=== PATIENT | female | born 1955 | race Caucasian/White ===

== ENCOUNTER 2017-08-26 17:34 | Observation (INO) | payer OTHER ==
[~2017-08-26] VITALS: Ht 175.3 cm; Wt 97.5 kg
[~2017-08-26 17:34] MED LIST: ARIC10TA PO; BUPR300T PO; BUSP10TA8 PO; CLOB-50 TOP; CYMB30CA PO; LEVA750T9 PO; NORT1CAP54 PO; PRED50 PO; PROT40TA PO; REST30CA PO; SENN-29 PO; SERO50TA PO; VITA10004 PO; VITA20002 PO; ZITH250T PO; ZOFR4TAB3 SL
[2017-08-26 17:36] VITALS: BP 170/80; PULSE 81; RESP 16; TEMP 97.5; O2SAT 100
[2017-08-26 17:55] VITALS: O2SAT 100
--- NOTE | 2017-08-26 17:55 | PD ---
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 She reports that she had a tooth extracted this afternoon. She reports that she was walking in her house at approximately 4:50 PM when she developed chest pain. She describes it as a sharp substernal pain that radiates into the arms. Pain comes and goes with no obvious aggravating or relieving factors. Denies abdominal pain, nausea or vomiting, diaphoresis, shortness of breath, cough or congestion, fevers or chills, lower extremity edema. She reports that it is unusual for her to feel pain because of her fentanyl pump. She has no other complaints at this time. 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 [facility]MERLY [facility] Past Medical History Asthma: Yes Anxiety: Yes Depression: Yes Cardiovascular Problems: No High Cholesterol: No Diabetes: No Diminished Hearing: No Hiatal Hernia: Yes Neurologic: Yes (RSD) Integumentary: Yes (LANG/LANG) Menopausal: Yes Past Surgical History Appendectomy: Yes Body Medical Devices: PAIN PUMP Neurologic Surgery: Yes (SPINAL CORD STIMULATOR) Tonsillectomy: Yes Social History Alcohol Use: No Tobacco Use: No Substance Use: No Allergies-Medications (Allergen,Severity, Reaction): Coded Allergies: methotrexate (Unverified Allergy, Severe, Nausea/Vomiting, 08/26/17) morphine (Unverified Allergy, Severe, Nausea/Vomiting, 08/26/17) sulfasalazine (Unverified Allergy, Severe, Nausea/Vomiting, 08/26/17) erythromycin base (Unverified Allergy, Unknown, 08/26/17) GI UPSET penicillin G (Unverified Allergy, Unknown, Rash, 08/26/17) codeine (Unverified Adverse Reaction, Intermediate, Nausea/Vomiting, ) Reported Meds & Prescriptions Reported Meds & Active Scripts Active Levaquin (Levofloxacin) 750 Mg Tab 1 Tab PO DAILY 7 Days Deltasone 50 Mg Tab (Prednisone) 50 Mg Tab 50 Mg PO DAILY 5 Days Zofran ODT (Ondansetron HCl) 4 Mg Tab 4 Mg SL Q6H PRN FOR NAUSEA/VOMITING Reported Pamelor 10 mg (Nortriptyline HCl) 10 Mg Cap 10 Mg PO HS Zithromax Z-Rashad (Azithromycin) 250 Mg Tab 250 Mg PO DIRECTED 500 MG (2 TABLETS) PO ON DAY 1, THEN 250 MG (1 TABLET) PO ON DAYS 2 TO 5. Vitamin B-12 Cr (Cyanocobalamin) 1 000 Tab 1,000 Mcg PO DAILY Clobetasol Propionate 0.05 % Oin 1 Applic TOP TID APPLY TO: AFFECTED AREAS Vitamin D-3 (Cholecalciferol) 2 000 Tab 4,000 Unit PO DAILY Senna 8.6 Mg Tab 8.6 Mg PO DAILY Restoril 30 mg (Temazepam) 30 Mg Cap 30 Mg PO HS Bupropion Hcl Xl (Bupropion HCl) 300 Mg Tab 300 Mg PO DAILY Buspar (Buspirone HCl) 10 Mg Tab 30 Mg PO DAILY Protonix (Pantoprazole Sodium) 40 Mg Tabdr 40 Mg PO DAILY Seroquel 50 mg (Quetiapine Fumarate) 50 Mg Tab 50 Mg PO HS Aricept (Donepezil HCl) 10 Mg Tab 10 Mg PO DAILY Cymbalta (Duloxetine HCl) 30 Mg Cap 30 Mg PO DAILY Review of Systems Except as stated in HPI: all other systems reviewed are Neg Physical Exam Narrative GENERAL: Well-developed well-nourished female no acute distress SKIN: Warm and dry. HEAD: Atraumatic. Normocephalic. EYES: Pupils equal and round. No scleral icterus. No injection or drainage. ENT: No nasal bleeding or discharge. Mucous membranes pink and moist. NECK: Trachea midline. No JVD. CARDIOVASCULAR: Regular rate and rhythm. No murmur appreciated. RESPIRATORY: No accessory muscle use. Clear to auscultation. Breath sounds equal bilaterally. GASTROINTESTINAL: Abdomen soft, non-tender, nondistended. Hepatic and splenic margins not palpable. MUSCULOSKELETAL: No obvious deformities. No clubbing. No cyanosis. No edema. NEUROLOGICAL: Awake and alert. No obvious cranial nerve deficits. Motor grossly within normal limits. Normal speech. PSYCHIATRIC: Appropriate mood and affect; insight and judgment normal. Data Data Last Documented VS Vital Signs Date Time Temp Pulse Resp B/P (MAP) Pulse Ox O2 Delivery O2 Flow Rate FiO2 08/26/17 18:55 18 08/26/17 18:53 93 165/72 (103) 96 08/26/17 18:01 Room Air 08/26/17 17:36 97.5 Orders Orders Electrocardiogram (08/26/17 17:51) Basic Metabolic Panel (Bmp) (08/26/17 17:51) Ckmb (Isoenzyme) Profile (08/26/17 17:51) Complete Blood Count With Diff (08/26/17 17:51) Magnesium (Mg) (08/26/17 17:51) Prothrombin Time / Inr (Pt) (08/26/17:51) Act Partial Throm Time (Ptt) (08/26/17 17:51) Troponin I (08/26/17 17:51) Ecg Monitoring (08/26/17:51) Bilateral Bp Monitoring (08/26/17:) Iv Access Insert/Monitor (08/26/17:51) Oximetry (08/26/17:51) Oxygen Administration (08/26/17 17:51) Aspirin Chew (Aspirin Chew) (08/26/17 18:00) Sodium Chloride 0.9% Flush (Ns Flush) (08/26/17 18:00) Nitroglycerin Sl (Nitrostat Sl) (08/26/17 18:00) Chest, Pa & Lat (08/26/17 17:51) CKMB (08/26/17 18:11) CKMB% (08/26/17 18:11) Labs Laboratory Tests Test 08/26/17 18:11 White Blood Count 7.4 TH/MM3 Red Blood Count 4.57 MIL/MM3 Hemoglobin 13.5 GM/DL Hematocrit 40.5 % Mean Corpuscular Volume 88.6 FL Mean Corpuscular Hemoglobin 29.5 PG Mean Corpuscular Hemoglobin Concent 33.3 % Red Cell Distribution Width 15.9 % Platelet Count 377 TH/MM3 Mean Platelet Volume 7.7 FL Neutrophils (%) (Auto) 54.9 % Lymphocytes (%) (Auto) 29.6 % Monocytes (%) (Auto) 10.4 % Eosinophils (%) (Auto) 4.3 % Basophils (%) (Auto) 0.8 % Neutrophils # (Auto) 4.1 TH/MM3 Lymphocytes # (Auto) 2.2 TH/MM3 Monocytes # (Auto) 0.8 TH/MM3 Eosinophils # (Auto) 0.3 TH/MM3 Basophils # (Auto) 0.1 TH/MM3 CBC Comment DIFF FINAL Differential Comment Prothrombin Time 10.3 SEC Prothromb Time International Ratio 1.0 RATIO Activated Partial Thromboplast Time 28.5 SEC Blood Urea Nitrogen 13 MG/DL Creatinine 0.82 MG/DL Random Glucose 100 MG/DL Calcium Level 9.1 MG/DL Magnesium Level 2.3 MG/DL Sodium Level 142 MEQ/L Potassium Level 4.3 MEQ/L Chloride Level 106 MEQ/L Carbon Dioxide Level 28.1 MEQ/L Anion Gap 8 MEQ/L Estimat Glomerular Filtration Rate 71 ML/MIN Total Creatine Kinase 112 U/L Creatine Kinase MB 1.1 NG/ML Troponin I LESS THAN 0.02 NG/ML MDM Medical Decision Making Medical Screen Exam Complete: Yes Emergency Medical Condition: Yes Medical Record Reviewed: Yes Differential Diagnosis Angina, acute coronary syndrome, aortic dissection, pulmonary embolism, pericarditis, myocarditis, pneumothorax Narrative Course The patient was placed on ECG monitoring pulse oximetry. A 12-lead EKG was obtained revealing sinus rhythm, lab work, chest x-ray been ordered per the patient took a baby aspirin this morning, additional 243 mg of aspirin as well as 3 sublingual nitroglycerin have been ordered. Upon reexamination patient reports that her pain resolved after nitroglycerin administration. CBC is unremarkable. BMP is unremarkable. CK and troponin are negative. Chest x-ray is normal. At this point time the plan is to admit the patient for serial cardiac enzymes and rule out purposes. She is agreeable. Diagnosis Primary Impression: Chest pain Admitting Information Admitting Physician Requests: Nico Madsen August 26, 2017 17:55
[2017-08-26] MEDS ORDERED: SODIUM CHLORIDE 0.9% FLUSH 10 ML FLUSH IVF PRN (18:00)
[2017-08-26] MEDS ORDERED: ASPIRIN 81 MG CHEW TAB PO ONE (18:00)
[2017-08-26 18:01] VITALS: BP_SYST 166; BP_SYST 181; BP_DIAS 79; BP_DIAS 83
[2017-08-26] MEDS: NITROGLYCERIN 0.4 MG SL 25 TABS/BTL SL SCH ×3 (18:12→18:50)
--- NOTE | 2017-08-26 18:47 | RADRPT ---
EXAM DATE/TIME: 08/26/2017 18:17 [place] COMPARISON: CHEST SINGLE AP, April 06, 2015, 15:57. INDICATIONS : Chest pain MEDICAL HISTORY : Hypertension. SURGICAL HISTORY : None. ENCOUNTER: Initial ACUITY: 1 day PAIN SCORE: 2/10 LOCATION: chest FINDINGS: Lungs are focally clear. No effusion present. Cardiac contour is satisfactory. Spinal stimulator is p resent in the thoracic region. Bony elements are unremarkable. CONCLUSION: No acute disease Rudy Montoya MD on August 26, 2017 at 18:44 Board Certified Radiologist. This report was verified electronically.
[2017-08-26 18:53] VITALS: BP 165/72; PULSE 93; RESP 18; O2SAT 96
[2017-08-26 19:01] LABS: AUTOMATED NEUTROPHIL # 4.1 TH/MM3 (1.8-7.7); BASOPHIL # 0.1 TH/MM3 (0-0.2); BASOPHIL % 0.8 % (0.0-2.0); EOSINOPHIL # 0.3 TH/MM3 (0-0.4); EOSINOPHIL % 4.3 % (0.0-4.0); HEMATOCRIT 40.5 % (35.0-46.0); HEMOGLOBIN 13.5 GM/DL (11.6-15.3); LYMPH % 29.6 % (9.0-44.0); LYMPHOCYTE # 2.2 TH/MM3 (1.0-4.8); MEAN CELL VOLUME 88.6 FL (80.0-100.0); MEAN CORPUSCULAR HEMOGLOBIN 29.5 PG (27.0-34.0); MEAN CORPUSCULAR HGB CONC 33.3 % (32.0-36.0); MEAN PLATELET VOLUME 7.7 FL (7.0-11.0); MONO % 10.4 % (0.0-8.0); MONOCYTE # 0.8 TH/MM3 (0-0.9); NEUT % 54.9 % (16.0-70.0); PLATELET COUNT 377 TH/MM3 (150-450); RED BLOOD COUNT 4.57 MIL/MM3 (4.00-5.30); RED CELL DISTRIBUTION WIDTH 15.9 % (11.6-17.2); WHITE BLOOD COUNT 7.4 TH/MM3 (4.0-11.0)
[2017-08-26 19:18] LABS: PROTHROMBIN TIME - PATIENT 10.3 SEC (9.8-11.6)
[2017-08-26 19:44] LABS: BICARBONATE 28.1 MEQ/L (21.0-32.0); BLOOD UREA NITROGEN 13 MG/DL (7-18); CALCIUM 9.1 MG/DL (8.5-10.1); CHLORIDE 106 MEQ/L (98-107); CREATININE 0.82 MG/DL (0.50-1.00); GLOMERULAR FILTRATION RATE 71 ML/MIN (>89); GLUCOSE,RANDOM 100 MG/DL (74-106); MAGNESIUM 2.3 MG/DL (1.5-2.5); SODIUM (NA) 142 MEQ/L (136-145)
[2017-08-26 19:47] LABS: TROPONIN I LESS THAN 0.02 NG/ML (0.02-0.05)
--- NOTE | 2017-08-26 20:04 | PD ---
Physical Exam Narrative General: The patient is a well-developed well-nourished female in no acute distress Head and Neck exam: Head is normocephalic atraumatic. Eyes: EOMI, pupils are equal round and reactive to light. Nose: Midline septum with pink mucous membranes Mouth: Dentition unremarkable. Moist mucus membranes. Posterior oropharynx is not erythematous. No tonsillar hypertrophy. Uvula midline. Airway patent. Neck: No palpable lymphadenopathy. No nuchal rigidity. No thyromegaly. Cardiovascular: Regular rate and rhythm without murmurs, gallops, or rubs. No pulse deficit to the extremities on simultaneous auscultation and palpation of her radial artery. Lungs: Clear to auscultation bilaterally. No wheezes, rhonchi, or rales. Abdomen: Soft, without tenderness to palpation in all 4 quadrants of the abdomen. No guarding, rebound, or rigidity. Normal bowel sounds are audible. No tenderness on palpation of McBurney's point. Extremities: No clubbing, cyanosis, or edema. 2+ pulses in all 4 extremities. No calf tenderness on palpation. Neurologic Exam: Grossly nonfocal. Skin Exam: No rash noted. Intact skin that is warm and dry. Data Data Last Documented VS Vital Signs Date Time Temp Pulse Resp B/P (MAP) Pulse Ox O2 Delivery O2 Flow Rate FiO2 08/26/17 18:55 18 08/26/17 18:53 93 165/72 (103) 96 08/26/17 18:01 Room Air 08/26/17 17:36 97.5 Orders Orders Electrocardiogram (08/26/17 17:51) Basic Metabolic Panel (Bmp) (08/26/17 17:51) Ckmb (Isoenzyme) Profile (08/26/17 17:51) Complete Blood Count With Diff (08/26/17 17:51) Magnesium (Mg) (08/26/17 17:51) Prothrombin Time / Inr (Pt) (08/26/17 17:51) Act Partial Throm Time (Ptt) (08/26/17 17:51) Troponin I (08/26/17 17:51) Ecg Monitoring (08/26/17 17:51) Bilateral Bp Monitoring (08/26/17 17:51) Iv Access Insert/Monitor (08/26/17 17:51) Oximetry (08/26/17 17:51) Oxygen Administration (08/26/17 17:51) Aspirin Chew (Aspirin Chew) (08/26/17 18:00) Sodium Chloride 0.9% Flush (Ns Flush) (08/26/17 18:00) Nitroglycerin Sl (Nitrostat Sl) (08/26/17 18:00) Chest, Pa & Lat (08/26/17 17:51) CKMB (08/26/17 18:11) CKMB% (08/26/17 18:11) Admit Order (Ed Use Only) (08/26/17 20:03) Activity Bed Rest With Brp (08/26/17 20:06) Vital Signs (Adult) Q4H (08/26/17 20:06) Cardiac Rhythm .As Directed (08/26/17 20:) Notify Dr: Other .PRN (08/26/17 20:06) Notify DrTaina Parameters (08/26/17 20:06) Resp Oxygen Nasal Cannula (08/26/17 ) Ckmb (Isoenzyme) Profile (08/26/17 21:11) Ckmb (Isoenzyme) Profile (08/27/17 00:11) Troponin I (08/26/17 21:11) Troponin I (08/27/17 00:11) Electrocardiogram (08/26/17 21:11) Electrocardiogram (08/27/17 00:11) ^ Obtain (08/26/17 20:06) Sodium Chloride 0.9% Flush (Ns Flush) (08/26/17 20:15) Sodium Chloride 0.9% Flush (Ns Flush) (08/26/17 21:00) Behavioral Health Professional / Telemetry DREW.Q8H (08/26/17 20:06) Diet Heart Healthy (08/27/17 Breakfast) Npo After Midnight W/ Po Meds (08/27/17 Breakfast) Labs Laboratory Tests Test 08/26/17 18:11 White Blood Count 7.4 TH/MM3 Red Blood Count 4.57 MIL/MM3 Hemoglobin 13.5 GM/DL Hematocrit 40.5 % Mean Corpuscular Volume 88.6 FL Mean Corpuscular Hemoglobin 29.5 PG Mean Corpuscular Hemoglobin Concent 33.3 % Red Cell Distribution Width 15.9 % Platelet Count 377 TH/MM3 Mean Platelet Volume 7.7 FL Neutrophils (%) (Auto) 54.9 % Lymphocytes (%) (Auto) 29.6 % Monocytes (%) (Auto) 10.4 % Eosinophils (%) (Auto) 4.3 % Basophils (%) (Auto) 0.8 % Neutrophils # (Auto) 4.1 TH/MM3 Lymphocytes # (Auto) 2.2 TH/MM3 Monocytes # (Auto) 0.8 TH/MM3 Eosinophils # (Auto) 0.3 TH/MM3 Basophils # (Auto) 0.1 TH/MM3 CBC Comment DIFF FINAL Differential Comment Prothrombin Time 10.3 SEC Prothromb Time International Ratio 1.0 RATIO Activated Partial Thromboplast Time 28.5 SEC Blood Urea Nitrogen 13 MG/DL Creatinine 0.82 MG/DL Random Glucose 100 MG/DL Calcium Level 9.1 MG/DL Magnesium Level 2.3 MG/DL Sodium Level 142 MEQ/L Potassium Level 4.3 MEQ/L Chloride Level 106 MEQ/L Carbon Dioxide Level 28.1 MEQ/L Anion Gap 8 MEQ/L Estimat Glomerular Filtration Rate 71 ML/MIN Total Creatine Kinase 112 U/L Creatine Kinase MB 1.1 NG/ML Troponin I LESS THAN 0.02 NG/ML MDM Medical Record Reviewed: Yes Supervised Visit with CLAUDETTE: Yes Narrative Course I, Dr. No, have reviewed the advance practice practitioner's documentation and am in agreement, met with the patient face to face, made the diagnosis, and the medical decision making was done by me. The patient was initially evaluated by Nico, the physician community assistant. Please see their complete history and physical. *My assessment and Findings: The patient presents with history of chest pain that began earlier in the afternoon. She reports that it began approximately 30 minutes after she had a dental procedure. She reports that the pain is in the center of her chest and was sharp in character. She reports that it did radiate down bilateral arms and she had an internal sensation of burning throughout her body. She denies having any diaphoresis. The patient reports that when she arrived in the emergency department she continued to have the pain to a lesser extent and all of the pain was relieved with sublingual nitroglycerin. She denies any prior history of cardiac disease. She does have a prior history of hypertension and hyperlipidemia. During the course of the patient's emergency department visit, the patient's history, examination, and differential diagnosis were reviewed with the patient. The patient was placed on a monitoring analyst with oximetry and frequent blood pressure monitoring. The patient had IV access obtained and blood work sent for analysis. The patient was initially provided aspirin 243 mg p.o. 1, sublingual nitroglycerin every 5 minutes 3 as needed chest pain. The patient's laboratory studies were reviewed and remarkable for a white count of 7.4, hemoglobin 13.5, platelets 377 with monocytes 10.4, basic metabolic profile is remarkable for GFR of 71, magnesium is 2.3, initial set of cardiac enzymes are negative, PT PTT within normal limits Radiology studies were reviewed and remarkable for a chest x-ray that shows no acute cardiopulmonary disease. The patient's results were discussed with the patient, including the plan of care. I explained that further testing and/ or monitoring is indicated based on the patient's history, examination, and/ or laboratory findings. Therefore, I recommended admission for additional evaluation. The patient expressed understanding and was agreeable with this plan. The patient was admitted to the hospital in stable condition and sent to a bed under the care of chest pain center. Diagnosis Primary Impression: Chest pain Qualified Codes: R07.9 - Chest pain, unspecified Admitting Information Admitting Physician Requests: Mireille Hdz MD August 26, 2017 20:04
[2017-08-26] MEDS ORDERED: SODIUM CHLORIDE 0.9% FLUSH 10 ML FLUSH IV FLUSH PRN (20:15)
[2017-08-26 21:13] VITALS: BP 160/70; PULSE 85; RESP 16; TEMP 98.3; O2SAT 97
[2017-08-26] MEDS: SODIUM CHLORIDE 0.9% FLUSH 10 ML FLUSH IV FLUSH SCH (21:26)
[2017-08-26] MEDS ORDERED: OMEP20TA93 PO (22:31)
[2017-08-26] MEDS ORDERED: LISI2.5T3 PO (22:31)
[2017-08-26] MEDS ORDERED: CLIN150C14 PO (22:31)
[2017-08-26] MEDS ORDERED: MELA5 PO (22:33)
[2017-08-26 23:05] VITALS: PULSE 82
[2017-08-26 23:14] LABS: TROPONIN I LESS THAN 0.02 NG/ML (0.02-0.05)
[2017-08-27] VITALS (9 sets, daily range): BP systolic 138–175; BP diastolic 67–84; PULSE 77–104; RESP 16–20; TEMP 97.5–98.4; O2SAT 95–98
[2017-08-27 00:52] LABS: TROPONIN I LESS THAN 0.02 NG/ML (0.02-0.05)
--- NOTE | 2017-08-27 08:44 | EKG ---
Date Performed: 08/26/2017 Time Performed: 21:17:36 PTAGE: 62 years EKG: Sinus rhythm MINIMAL VOLTAGE CRITERIA FOR LVH, CONSIDER NORMAL VARIANT POSSIBLE ANTERIOR MYOCARDIAL INFARCTION AB NORMAL ECG Since PREVIOUS TRACING , no significant change noted PREVIOUS TRACIN08/26/2017 17.46 DOCTOR: Ana Paula Rivas Interpretating Date/Time 08/27/2017 08:43:21
--- NOTE | 2017-08-27 08:45 | EKG ---
Date Performed: 08/27/2017 Time Performed: 00:34:34 PTAGE: 62 years EKG: Sinus rhythm MODERATE VOLTAGE CRITERIA FOR LVH, CONSIDER NORMAL VARIANT POSSIBLE ANTERIOR MYOCARDIAL INFARCTION A BNORMAL ECG Since PREVIOUS TRACING , no significant change noted PREVIOUS TRACIN08/26/2017 21.17 DOCTOR: Ana Paula Rivas Interpretating Date/Time 08/27/2017 08:44:02
--- NOTE | 2017-08-27 08:52 | EKG ---
Date Performed: 08/26/2017 Time Performed: 17:46:04 PTAGE: 62 years EKG: Sinus rhythm MARKED LEFT AXIS DEVIATION MODERATE VOLTAGE CRITERIA FOR LVH, CONSIDER NORMAL VARIANT POSSIBLE ANTER IOR MYOCARDIAL INFARCTION ABNORMAL ECG Since PREVIOUS TRACING , no significant change noted PREVIOUS TRACIN04/06/2015 15.46 DOCTOR: Ana Paula Rivas Interpretating Date/Time 08/27/2017 08:51:17
[2017-08-27] MEDS: SODIUM CHLORIDE 0.9% FLUSH 10 ML FLUSH IV FLUSH SCH (08:55)
[2017-08-27] MEDS ORDERED: LISINOPRIL 5 MG TAB PO SCH (09:00)
[2017-08-27] MEDS ORDERED: PILL SPLITTER OTHER PRN (09:00)
[2017-08-27] MEDS ORDERED: NON-FORMULARY DRUG (Lisinopril 2.5 MG) PO SCH (09:00)
[2017-08-27] MEDS ORDERED: PERC5TAB12 PO (11:03)
[2017-08-27] MEDS ORDERED: ATOR10TA15 PO (11:06)
[2017-08-27] MEDS ORDERED: LISINOPRIL 5 MG TAB PO ONE (11:15)
[2017-08-27] MEDS ORDERED: oxyCODONE/ACETAMINOPHEN 5 MG/325 MG TAB PO PRN (11:15)
[2017-08-27] MEDS ORDERED: SERO50TA PO (11:25)
[2017-08-27] MEDS ORDERED: CHOL1TAB42 (11:25)
[2017-08-27] MEDS ORDERED: ZOFR4TAB3 SL (11:25)
[2017-08-27] MEDS ORDERED: DONE5TAB8 PO (11:25)
[2017-08-27] MEDS ORDERED: NORT50CA PO (11:25)
[2017-08-27] MEDS ORDERED: BUSP30TA PO (11:25)
[2017-08-27] MEDS ORDERED: VITA10004 PO (11:25)
[2017-08-27] MEDS ORDERED: BUPR100T4 PO (11:25)
[2017-08-27] MEDS ORDERED: CLOB0.0513 (11:25)
--- NOTE | 2017-08-27 11:26 | HHI.HP ---
HPI Primary Care Physician Unknown Chief Complaint Chest pain History of Present Illness This is a 62-year-old female that presents to ED in private vehicle with a complaint of chest discomfort. The discomfort began a little after having a dental procedure done. Discomfort was in the center of her chest. Last 2 hours. Denies shortness of breath, nausea, or diaphoresis. Denies history of CAD. Upon reviewing records she had a nonischemic Lexiscan 2013. Currently denies chest discomfort. Denies recent illness. Denies fevers or chills. Review of Systems General: Patient denies fevers, chills, and recent travel. HEENT: Patient denies headache, sore throat, difficulty swallowing. Cardiovascular: Has the chest discomfort as mentioned above. Denies sensation of heart beating rapidly or irregularly. No syncope. Denies diaphoresis. Respiratory: Denies shortness of breath or inspirational chest discomfort. Denies coughing wheezing or hemoptysis. GI: Patient denies nausea, vomiting, diarrhea, abdominal pain, bloody stools. Musculoskeletal: Patient denies joint pain or edema. Denies calf pain or edema. Neurovascular: Patient denies numbness, tingling, weakness in extremities. Denies headache. Endocrine: Denies polyuria and polydipsia. Hematologic: Denies easy bruising. Skin: Denies rash or itching. Past Family Social History Allergies: Coded Allergies: methotrexate (Unverified Allergy, Severe, Nausea/Vomiting, 08/26/17) morphine (Unverified Allergy, Severe, Nausea/Vomiting, 08/26/17) sulfasalazine (Unverified Allergy, Severe, Nausea/Vomiting, 08/26/17) erythromycin base (Unverified Allergy, Unknown, 08/26/17) GI UPSET penicillin G (Unverified Allergy, Unknown, Rash, 08/26/17) codeine (Unverified Adverse Reaction, Intermediate, Nausea/Vomiting, ) Past Medical History Complex regional pain syndrome, rheumatoid arthritis,, restless leg syndrome, hypertension, depression, GERD. Denies diabetes, CAD, and hyperlipidemia. Past Surgical History Pain pump. Appendectomy. Tonsillectomy. Reported Medications Reported Meds & Active Scripts Active Zofran ODT (Ondansetron HCl) 4 Mg Tab 4 Mg SL Q6H PRN FOR NAUSEA/VOMITING Reported Atorvastatin (Atorvastatin Calcium) 10 Mg Tab 10 Mg PO HS Percocet (Oxycodone-Acetaminophen) 5-325 mg Tab 1 Tab PO Q4H PRN Melatonin 5 Mg Tab 5 Mg PO HS Clindamycin (Clindamycin HCl) 150 Mg Cap 150 Mg PO Q6HR Omeprazole 20 Mg Tab 20 Mg PO DAILY Pamelor 10 mg (Nortriptyline HCl) 10 Mg Cap 10 Mg PO HS Vitamin B-12 Cr (Cyanocobalamin) 1 000 Tab 1,000 Mcg PO DAILY Clobetasol Propionate (Clobetasol Propionate Emulsion) 0.05 % Oin 1 Applic TOP TID APPLY TO: AFFECTED AREAS Vitamin D-3 (Cholecalciferol) 2 000 Tab 4,000 Unit PO DAILY Senna 8.6 Mg Tab 8.6 Mg PO DAILY Bupropion Hcl Xl (Bupropion HCl) 300 Mg Tab 300 Mg PO DAILY Buspar (Buspirone HCl) 10 Mg Tab 30 Mg PO DAILY Seroquel 50 mg (Quetiapine Fumarate) 50 Mg Tab 50 Mg PO HS Aricept (Donepezil HCl) 10 Mg Tab 10 Mg PO DAILY Active Ordered Medications Current Medications Medications (Trade) Dose Ordered Sig/Naye Route Start Time Stop Time Status Last Admin (NS Flush) 2 ml UNSCH PRN IVF 08/26/17 18:00 (NS Flush) 2 ml UNSCH PRN IV FLUSH 08/26/17 20:15 (NS Flush) 2 ml BID IV FLUSH 08/26/17 21:00 08/27/17 08:55 (Prinivil) 2.5 mg DAILY PO 08/27/17 09:00 08/27/17 08:54 (Pill Splitter) 1 ea UNSCH PRN OTHER 08/27/17 09:00 (Percocet 5-325 Mg) 1 tab Q4H PRN PO 08/27/17 11:15 Family History Denies family history of CAD. Social History Non-smoker. Denies alcohol or illicit drug use. Physical Exam Vital Signs Vital Signs Date Time Temp Pulse Resp B/P (MAP) Pulse Ox O2 Delivery O2 Flow Rate FiO2 08/27/17 11:02 156/84 (108) 08/27/17 10:44 97.5 77 20 175/80 (111) 98 08/27/17 07:52 78 08/27/17 07:17 98.1 77 20 151/70 (97) 95 5/15/18 04:35 98.0 81 16 138/67 (90) 95 08/27/17 00:28 98.4 83 16 169/75 (106) 95 08/26/17 23:05 82 08/26/17 21:38 21 08/26/17 21:13 98.3 85 16 160/70 (100) 97 08/26/17 20:53 08/26/17 18:55 18 08/26/17 18:53 93 18 165/72 (103) 96 08/26/17 18:01 166/83 (110) 181/79 (113) 08/26/17 18:01 Room Air 08/26/17 17:55 85 98 Room Air 08/26/17 17:55 100 Room Air 08/26/17 17:36 97.5 81 16 170/80 (110) 100 Physical Exam GENERAL: This is a well-nourished, well-developed patient, in no apparent distress. Patient speaks in clear complete sentences. Patient is pleasant. HEENT: Head is atraumatic and normocephalic. Neck is supple without lymphadenopathy and trachea is midline. No JVD or carotid bruits. CARDIOVASCULAR: Regular rate and rhythm without murmurs, gallops, or rubs. RESPIRATORY: Clear to auscultation. Breath sounds equal bilaterally. No wheezes , rales, or rhonchi. Chest wall is nontender. No use of accessory muscles. GASTROINTESTINAL: Abdomen is nontender, nondistended. Abdomen soft. No obvious pulsatile mass or bruit. No CVA tenderness. Strong femoral pulses bilaterally. Normal bowel sounds in all quadrants. MUSCULOSKELETAL: Patient is moving upper and lower extremities freely. No calf tenderness or edema, no Homans sign. Strong pulses in upper and lower extremities. NEUROLOGICAL: Patient is alert and oriented. Cranial nerves 2-12 are grossly intact. No focal deficits and speech is clear. SKIN: No rash and turgor is normal. Laboratory Laboratory Tests Test 08/26/17 18:11 08/26/17 21:25 08/27/17 00:10 White Blood Count 7.4 Red Blood Count 4.57 Hemoglobin 13.5 Hematocrit 40.5 Mean Corpuscular Volume 88.6 Mean Corpuscular Hemoglobin 29.5 Mean Corpuscular Hemoglobin Concent 33.3 Red Cell Distribution Width 15.9 Platelet Count 377 Mean Platelet Volume 7.7 Neutrophils (%) (Auto) 54.9 Lymphocytes (%) (Auto) 29.6 Monocytes (%) (Auto) 10.4 Eosinophils (%) (Auto) 4.3 Basophils (%) (Auto) 0.8 Neutrophils # (Auto) 4.1 Lymphocytes # (Auto) 2.2 Monocytes # (Auto) 0.8 Eosinophils # (Auto) 0.3 Basophils # (Auto) 0.1 CBC Comment DIFF FINAL Differential Comment Prothrombin Time 10.3 Prothromb Time International Ratio 1.0 Activated Partial Thromboplast Time 28.5 Blood Urea Nitrogen 13 Creatinine 0.82 Random Glucose 100 Calcium Level 9.1 Magnesium Level 2.3 Sodium Level 142 Potassium Level 4.3 Chloride Level 106 Carbon Dioxide Level 28.1 Anion Gap 8 Estimat Glomerular Filtration Rate 71 Total Creatine Kinase 112 98 116 Creatine Kinase MB 1.1 1.2 Troponin I LESS THAN 0.02 LESS THAN 0.02 LESS THAN 0.02 Result Diagram: 08/26/17 1811 08/26/17 1811 Imaging Last 48 hours Impressions Chest X-Ray 08/26/17 1751 Signed Impressions: Service Date/Time: Saturday, August 26, 2017 18:17 - CONCLUSION: No acute disease Rudy Montoya MD Course EKGs are sinus rhythm without significant ST segment depressions or elevations. Caprini VTE Risk Assessment Caprini VTE Risk Assessment: Mod/High Risk (score >= 2) Caprini Risk Assessment Model Point Value = 1 Point Value = 2 Point Value = 3 Point Value = 5 Age 41-60 Minor surgery BMI > 25 kg/m2 Swollen legs Varicose veins or History of unexplained or recurrent spontaneous Oral contraceptives or hormone replacement Sepsis (< 1 month) Serious lung disease, including pneumonia (< 1 month) Abnormal pulmonary function Acute myocardial infarction Congestive heart failure (< 1 month) History of inflammatory bowel disease Medical patient at bed rest Age 61-74 Arthroscopic surgery Major open surgery (> 45 min) Laparoscopic surgery (> 45 min) Malignancy Confined to bed (> 72 hours) Immobilizing plaster cast Central venous access Age >= 75 History of VTE Family history of VTE Factor V Leiden Prothrombin [id number] Lupus anticoagulant Anticardiolipin antibodies Elevated serum homocysteine Heparin-induced thrombocytopenia Other congenital or acquired thrombophilia Stroke (< 1 month) Elective arthroplasty Hip, pelvis, or leg fracture Acute spinal cord injury (< 1 month) Prophylaxis Regimen Total Risk Factor Score Risk Level Prophylaxis Regimen 0-1 Low Early ambulation 2 Moderate Order ONE of the following: *Sequential Compression Device (SCD) *Heparin 5000 units SQ BID 3-4 Higher Order ONE of the following medications: *Heparin 5000 units SQ TID *Enoxaparin/Lovenox 40 mg SQ daily (WT < 150 kg, CrCl > 30 mL/min) *Enoxaparin/Lovenox 30 mg SQ daily (WT < 150 kg, CrCl > 10-29 mL/min) *Enoxaparin/Lovenox 30 mg SQ BID (WT < 150 kg, CrCl > 30 mL/min) AND/OR *Sequential Compression Device (SCD) 5 or more Highest Order ONE of the following medications: *Heparin 5000 units SQ TID (Preferred with Epidurals) *Enoxaparin/Lovenox 40 mg SQ daily (WT < 150 kg, CrCl > 30 mL/min) *Enoxaparin/Lovenox 30 mg SQ daily (WT < 150 kg, CrCl > 10-29 mL/min) *Enoxaparin/Lovenox 30 mg SQ BID (WT < 150 kg, CrCl > 30 mL/min) AND *Sequential Compression Device (SCD) Assessment and Plan Assessment and Plan * Chest pain: Patient has had serial cardiac enzymes and EKGs for ruling out purposes. She was seen by Dr. Rivas of cardiology in the chest pain center. She will undergo a Lexiscan. Patient will be discharged home if Lexiscan is nonischemic with instructions to follow-up with PCP. Return to ED for interval issues. * Hypertension: We will increase lisinopril dose. Patient is stable at this time. She is agreeable to this plan. Roddy Graf August 27, 2017 11:26
[2017-08-27] MEDS ORDERED: REGADENOSON INJ 0.4 MG/5 ML SYR ONE (14:19)
--- NOTE | 2017-08-27 15:47 | RADRPT ---
EXAM DATE/TIME: 08/27/2017 14:03 [facility] COMPARISON: No previous studies available for comparison. INDICATIONS : Substernal chest pain radiating to bilateral arms. Angina. DOSE: 26.7 mCi Tc99m Myoview at stress. 8.5 mCi Tc99m Myoview at rest. 0.4 mg Lexiscan STRESS SYMPTOMS: Lightheaded. EJECTION FRACTION: 66% MEDICAL HISTORY : Hypertension. Asthma. SURGICAL HISTORY : Tonsillectomy. Appendectomy. Neurostimulator and fentanyl pump. ENCOUNTER: Initial ACUITY: 1 day PAIN SCALE: 6/10 LOCATION: Substernal chest TECHNIQUE: The patient underwent pharmacologic stress with infusion of prescribed dose. Continuous ECG tracing was monitored during stress. Gated SPECT imaging was performed after stress and conventional SPECT i maging was performed at rest. The examination was performed on a SPECT/CT scanner, both attenuation and non-corrected datasets were reviewed. FINDINGS: DISTRIBUTION: The maximum perfused segment at stress is in the anterolateral wall. PERFUSION STUDY: The pattern of perfusion at stress shows some thickening of perfusion to the apex. Minimal reversibil ity in the low anterior and lateral guardado does not appear to be significant. GATED STUDY: There is intact wall motion and thickening without hypokinetic or dyskinetic segments. CONCLUSION: 1. Apical thinning versus old apical infarct. 2. No scintigraphic findings of ischemia. 3. Adequate wall motion throughout with an estimated ejection fraction of 66% RISK CATEGORY: Low (<1% Annual Mortality Rate) Sherman Grimes MD on August 27, 2017 at 15:40 Board Certified Radiologist. This report was verified electronically.
[2017-08-27] MEDS ORDERED: LISI10TA3 PO (16:05)
--- NOTE | 2017-08-27 16:06 | HHI.DCPOC ---
Discharge Care Plan Diagnosis: (1) Chest pain (2) Hypertension Goals to Promote Your Health * To prevent worsening of your condition and complications * To maintain your health at the optimal level Directions to Meet Your Goals Take your medications as prescribed Follow your dietary instruction Follow activity as directed Keep your appointments as scheduled Take your immunizations and boosters as scheduled If your symptoms worsen call your PCP, if no PCP go to Urgent Care Center or Emergency Room Smoking is Dangerous to Your Health. Avoid second hand smoke Call the 24-hour hour crisis hotline for domestic abuse at Roddy Graf August 27, 2017 16:05
--- NOTE | 2017-08-27 16:58 | TR ---
Date Performed: 08/27/2017 Time Performed: 14:26:41 DOCTOR: Ana Paula Rivas DRUG LIST: CLINICAL HISTORY: REASON FOR TEST: REASON FOR ENDING: OBSERVATION: CONCLUSION: Lexiscan stress test was performed under standard four minute protocol. Radionuclid e was injected one minute prior to ending the test. No electrocardiographic abormalities were present to suggest ischemia. Nuclear imaging and interpretation are pending. COMMENTS: no ischemia
== END 2017-08-27 18:05 | disposition home or self-care (01) ==
LOC: NEPE 17:34 → NEDA 20:04 → NEPHCDU 20:56
PROVIDERS: ADMIT Internal Medicine Cardiovascular Disease; ATTEND Internal Medicine Cardiovascular Disease
DX: R07.89 Other chest pain (principal); I10 Essential (primary) hypertension; R94.31 Abnormal electrocardiogram [ECG] [EKG]; E78.5 Hyperlipidemia, unspecified; J45.909 Unspecified asthma, uncomplicated; K21.9 Gastro-esophageal reflux disease without esophagitis; G25.81 Restless legs syndrome; M06.9 Rheumatoid arthritis, unspecified; F41.9 Anxiety disorder, unspecified; F32.9 Major depressive disorder, single episode, unspecified; Z79.899 Other long term (current) drug therapy
CPT/HCPCS: 71046; 78452; 80048; 82550; 82552; 83735; 84484; 85025; 85610; 85730; 93005; 93017; 99285; A9502; G0378; J2785